=== PATIENT | female | born 1930 | race Caucasian/White ===

== ENCOUNTER 2017-07-12 23:40 | Inpatient (IN) ==
[2017-07-13] MEDS ORDERED: ONDANSETRON 4 MG/2 ML VIAL IV STA (00:11)
[2017-07-13] MEDS ORDERED: MORPHINE 2 MG/1 ML SYRINGE IV STA (00:11)
[2017-07-13] MEDS ORDERED: hydrALAZINE 20 MG/1 ML VIAL IV STA (00:21)
[2017-07-13] MEDS ORDERED: ONDANSETRON 4 MG/2 ML VIAL ONE (00:26)
[2017-07-13] MEDS ORDERED: hydrALAZINE 20 MG/1 ML VIAL ONE (00:26)
[2017-07-13] MEDS ORDERED: MORPHINE 2 MG/1 ML SYRINGE ONE (00:26)
[2017-07-13 00:29] LABS: Apearance,Urine CLEAR (Clear); Bacteria,Urine Occasional /HPF (Few); Bilirubin,Urine Negative (Negative); Blood, Urine Moderate mg/dL (Negative); Glucose,Urine (UA) 150 mg/dL (Negative); Ketones,Urine 5 mg/dL (Negative); Mucus,Urine Occasional /LPF (Occasional); Nitrite,Urine Negative (Negative); Protein,Urine 30 MG/DL; RBC,Urine 26 /HPF (0-4); Squamous Epithelial Cell,Urine Occasional /HPF (0-10); Urine Color Yellow (Yellow); Urine Urobilinogen < 2.0 EU/DL (0.2-1.0); WBC,Urine 2 /HPF (0-6)
[2017-07-13 00:33] LABS: Partial Thromboplastin Time 24.7 SECS (0-40)
[2017-07-13 00:48] LABS: Albumin 3.4 G/DL (3.4-5.0); Bilirubin,Total 0.5 MG/DL (0.2-1.0); Calcium 8.8 MG/DL (8.5-10.1); Osmolality,Calculated 280.8 MOS/KG (273-304); Potassium 3.2 MMOL/L (3.5-5.1); Total Protein 7.1 G/DL (6.4-8.3)
[2017-07-13 00:54] LABS: Basophils # 0.1 10*3/uL (0.0-0.2); Basophils % 0.5 % (0.0-0.8); Eosinophils # 0.1 10*3/uL (0.0-0.87); Eosinophils % 0.6 % (0.00-10.9); Hematocrit 39.8 VOL% (35.7-47.0); Hemoglobin 13.3 GM/DL (12.0-16.0); Immature Granulocytes % 0.9 %; Immature Granulocytes Absolute 0.11 #; Lymphocytes # 1.6 10*3/uL (1.4-4.0); Lymphocytes % 12.2 % (21.3-54.2); Mean Corpuscular HGB Conc 33.4 GM/DL (32-36); Mean Corpuscular Hemoglobin 30 PG (27-34); Mean Corpuscular Volume 90.9 FL (87-102); Mean Platelet Volume 11.2 FL (9.6-12.0); Monocytes # 0.7 10*3/uL (0.11-0.8); Monocytes % 5.1 % (1.7-12.7); Neutrophils # 10.4 10*3/uL (1.4-7.4); Neutrophils % 80.7 % (38.7-73.9); Platelet Count 194 T/CUMM (130-400); Red Blood Count 4.38 MC/CUMM (3.8-5.5); Red Cell Distribution Width 13.6 % (9.3-17.3); White Blood Count 12.8 T/CUMM (4-12)
[2017-07-13] MEDS ORDERED: ONDANSETRON 4 MG/2 ML VIAL IV PRN ×2 (01:46→12:17)
[2017-07-13] MEDS ORDERED: DEXTROSE 5% NACL 0.45% 1,000 ML IV SCH (02:00)
[2017-07-13] MEDS ORDERED: MORPHINE 2 MG/1 ML SYRINGE IV PRN ×3 (04:01→08:48)
[2017-07-13] MEDS ORDERED: ceFAZolin 1,000 MG in SYRINGE 1 EACH IV ONE (07:48)
[2017-07-13] MEDS: LISINOPRIL/HCTZ 20-12.5 MG TABLET PO SCH ×2 (08:19→22:04)
[2017-07-13] MEDS: METOPROLOL SUCCINATE XL 50 MG TABLET PO SCH (08:20)
[2017-07-13] MEDS: LACTATED RINGERS 1,000 ML IV SCH ×2 (08:55→10:00)
[2017-07-13] MEDS ORDERED: BACITRACIN OINT 0.9 GM PACK TOP ONE (09:28)
[2017-07-13] MEDS ORDERED: SEVOFLURANE 1 UNIT/15 MINUTE INH ONE (10:38)
[2017-07-13] MEDS ORDERED: fentaNYL 100 MCG/2 ML VIAL ONE (10:38)
[2017-07-13] MEDS ORDERED: LACTATED RINGERS 1,000 ML IV ONE (10:39)
[2017-07-13] MEDS ORDERED: ACETAMINOPHEN 1,000 MG/100 ML VIAL IV ONE (10:39)
[2017-07-13] MEDS ORDERED: GLYCOPYRROLATE 0.4 MG/2 ML VIAL ONE (10:39)
[2017-07-13] MEDS ORDERED: NEOSTIGMINE 10 MG/10 ML VIAL ONE (10:39)
[2017-07-13] MEDS ORDERED: ETOMIDATE 20 MG/10 ML VIAL IV ONE (10:39)
[2017-07-13] MEDS ORDERED: TRANEXAMIC ACID 1,000 MG/10 ML VIAL IV ONE (10:39)
[2017-07-13] MEDS: KETOROLAC 15 MG/1 ML VIAL IV SCH ×3 (12:40→22:03)
[2017-07-13] MEDS: POTASSIUM CHLORIDE INJ 40 MEQ in LACTATED RINGERS 1,000 ML IV SCH (12:49)
[2017-07-13] MEDS: DOCUSATE SODIUM 100 MG CAPSULE PO SCH ×2 (14:20→22:02)
[2017-07-13] MEDS: TOLTERODINE LA 4 MG CAPSULE PO SCH (14:20)
[2017-07-13] MEDS ORDERED: INSULIN REGULAR ** CONC 500 UNIT/ML ** 20 ML VIAL SUBCUT SCH (16:30)
[2017-07-13] MEDS: ACETAMINOPHEN 500 MG TABLET PO SCH ×2 (16:50→22:02)
[2017-07-13] MEDS: INSULIN REGULAR 100 UNIT/ML SUBCUT SCH ×2 (17:27→22:03)
[2017-07-13] MEDS: ceFAZolin 1,000 MG in SYRINGE 1 EACH IV SCH ×2 (17:30→22:01)
[2017-07-13] MEDS: diphenhydrAMINE CAP 25 MG CAPSULE PO SCH (22:02)
[2017-07-13] MEDS: INSULIN GLARGINE 100 UNIT/ML SUBCUT SCH (22:03)
[2017-07-14] MEDS: ACETAMINOPHEN 500 MG TABLET PO SCH ×2 (02:49→06:24)
[2017-07-14] MEDS: FONDAPARINUX 2.5 MG/0.5 ML SYRINGE SUBCUT SCH (02:50)
[2017-07-14] MEDS: KETOROLAC 15 MG/1 ML VIAL IV SCH (02:50)
[2017-07-14] MEDS: POTASSIUM CHLORIDE INJ 40 MEQ in LACTATED RINGERS 1,000 ML IV SCH (03:59)
[2017-07-14] MEDS: oxyCODONE IR 5 MG TABLET PO PRN ×2 (06:23→20:29)
[2017-07-14 06:31] LABS: Basophils # 0.1 10*3/uL (0.0-0.2); Basophils % 0.5 % (0.0-0.8); Eosinophils # 0.1 10*3/uL (0.0-0.87); Eosinophils % 0.9 % (0.00-10.9); Hematocrit 27.3 VOL% (35.7-47.0); Immature Granulocytes % 0.4 %; Immature Granulocytes Absolute 0.04 #; Lymphocytes # 2.1 10*3/uL (1.4-4.0); Lymphocytes % 21.4 % (21.3-54.2); Mean Corpuscular Hemoglobin 31 PG (27-34); Mean Corpuscular Volume 92.9 FL (87-102); Mean Platelet Volume 10.7 FL (9.6-12.0); Monocytes # 0.8 10*3/uL (0.11-0.8); Monocytes % 8.6 % (1.7-12.7); Neutrophils # 6.7 10*3/uL (1.4-7.4); Neutrophils % 68.2 % (38.7-73.9); Platelet Count 144 T/CUMM (130-400); Red Blood Count 2.94 MC/CUMM (3.8-5.5); Red Cell Distribution Width 14.1 % (9.3-17.3); White Blood Count 9.8 T/CUMM (4-12)
[2017-07-14] MEDS ORDERED: DEXTROSE 50% 25 GM/50 ML VIAL IV PRN (07:29)
[2017-07-14] MEDS ORDERED: GLUCAGON 1 MG VIAL IM PRN (07:29)
[2017-07-14] MEDS: INSULIN REGULAR 100 UNIT/ML SUBCUT SCH ×4 (07:34→20:32)
[2017-07-14 07:35] LABS: Calcium 8.2 MG/DL (8.5-10.1); Osmolality,Calculated 282.5 MOS/KG (273-304); Potassium 4.3 MMOL/L (3.5-5.1)
[2017-07-14] MEDS: LISINOPRIL/HCTZ 20-12.5 MG TABLET PO SCH ×2 (09:00→20:31)
[2017-07-14] MEDS: METOPROLOL SUCCINATE XL 50 MG TABLET PO SCH (09:00)
[2017-07-14] MEDS ORDERED: INSULIN GLARGINE 100 UNIT/ML SUBCUT SCH (09:00)
[2017-07-14] MEDS: INSULIN GLARGINE 100 UNIT/ML SUBCUT SCH ×2 (09:01→20:31)
[2017-07-14] MEDS: TOLTERODINE LA 4 MG CAPSULE PO SCH (09:01)
[2017-07-14] MEDS: DOCUSATE SODIUM 100 MG CAPSULE PO SCH ×2 (09:01→20:31)
[2017-07-14 13:19] LABS: Basophils # 0.1 10*3/uL (0.0-0.2); Basophils % 0.5 % (0.0-0.8); Eosinophils # 0.2 10*3/uL (0.0-0.87); Eosinophils % 1.6 % (0.00-10.9); Hematocrit 25.3 VOL% (35.7-47.0); Hemoglobin 8.5 GM/DL (12.0-16.0); Immature Granulocytes % 0.3 %; Immature Granulocytes Absolute 0.03 #; Lymphocytes # 1.8 10*3/uL (1.4-4.0); Lymphocytes % 18.6 % (21.3-54.2); Mean Corpuscular HGB Conc 33.6 GM/DL (32-36); Mean Corpuscular Hemoglobin 31 PG (27-34); Mean Corpuscular Volume 92.3 FL (87-102); Mean Platelet Volume 11.4 FL (9.6-12.0); Monocytes # 0.7 10*3/uL (0.11-0.8); Monocytes % 7.2 % (1.7-12.7); Neutrophils # 6.9 10*3/uL (1.4-7.4); Neutrophils % 71.8 % (38.7-73.9); Platelet Count 143 T/CUMM (130-400); Red Blood Count 2.74 MC/CUMM (3.8-5.5); Red Cell Distribution Width 14.3 % (9.3-17.3); White Blood Count 9.6 T/CUMM (4-12)
[2017-07-14] MEDS: diphenhydrAMINE CAP 25 MG CAPSULE PO SCH (20:31)
[2017-07-15] MEDS: FONDAPARINUX 2.5 MG/0.5 ML SYRINGE SUBCUT SCH (04:04)
[2017-07-15 04:40] LABS: Basophils # 0.1 10*3/uL (0.0-0.2); Basophils % 0.7 % (0.0-0.8); Eosinophils # 0.2 10*3/uL (0.0-0.87); Eosinophils % 1.4 % (0.00-10.9); Hematocrit 25.6 VOL% (35.7-47.0); Hemoglobin 8.5 GM/DL (12.0-16.0); Immature Granulocytes % 0.3 %; Immature Granulocytes Absolute 0.03 #; Lymphocytes # 1.8 10*3/uL (1.4-4.0); Lymphocytes % 17.6 % (21.3-54.2); Mean Corpuscular HGB Conc 33.2 GM/DL (32-36); Mean Corpuscular Hemoglobin 30 PG (27-34); Mean Corpuscular Volume 90.8 FL (87-102); Mean Platelet Volume 11.1 FL (9.6-12.0); Monocytes # 0.9 10*3/uL (0.11-0.8); Monocytes % 8.9 % (1.7-12.7); Neutrophils # 7.4 10*3/uL (1.4-7.4); Neutrophils % 71.1 % (38.7-73.9); Platelet Count 143 T/CUMM (130-400); Red Blood Count 2.82 MC/CUMM (3.8-5.5); Red Cell Distribution Width 13.8 % (9.3-17.3); White Blood Count 10.4 T/CUMM (4-12)
[2017-07-15] MEDS: INSULIN REGULAR 100 UNIT/ML SUBCUT SCH ×4 (09:06→20:34)
[2017-07-15] MEDS: METOPROLOL SUCCINATE XL 50 MG TABLET PO SCH (09:07)
[2017-07-15] MEDS: TOLTERODINE LA 4 MG CAPSULE PO SCH (09:07)
[2017-07-15] MEDS: DOCUSATE SODIUM 100 MG CAPSULE PO SCH ×2 (09:07→20:28)
[2017-07-15] MEDS: LISINOPRIL/HCTZ 20-12.5 MG TABLET PO SCH ×2 (09:07→20:28)
[2017-07-15] MEDS: INSULIN GLARGINE 100 UNIT/ML SUBCUT SCH ×2 (12:18→20:29)
[2017-07-15] MEDS: FERROUS SULFATE 325 MG TABLET PO SCH ×2 (16:45→20:28)
[2017-07-15] MEDS: diphenhydrAMINE CAP 25 MG CAPSULE PO SCH (20:28)
[2017-07-16 03:23] LABS: Basophils # 0.1 10*3/uL (0.0-0.2); Basophils % 0.7 % (0.0-0.8); Eosinophils # 0.1 10*3/uL (0.0-0.87); Eosinophils % 0.9 % (0.00-10.9); Hematocrit 26.2 VOL% (35.7-47.0); Hemoglobin 9.1 GM/DL (12.0-16.0); Immature Granulocytes % 0.3 %; Immature Granulocytes Absolute 0.04 #; Lymphocytes % 16.1 % (21.3-54.2); Mean Corpuscular HGB Conc 34.7 GM/DL (32-36); Mean Corpuscular Hemoglobin 31 PG (27-34); Mean Corpuscular Volume 89.7 FL (87-102); Mean Platelet Volume 11.3 FL (9.6-12.0); Monocytes # 1.1 10*3/uL (0.11-0.8); Monocytes % 8.6 % (1.7-12.7); Neutrophils # 8.9 10*3/uL (1.4-7.4); Neutrophils % 73.4 % (38.7-73.9); Platelet Count 173 T/CUMM (130-400); Red Blood Count 2.92 MC/CUMM (3.8-5.5); Red Cell Distribution Width 13.5 % (9.3-17.3); White Blood Count 12.2 T/CUMM (4-12)
[2017-07-16] MEDS: FONDAPARINUX 2.5 MG/0.5 ML SYRINGE SUBCUT SCH (03:57)
[2017-07-16] MEDS: MAGNESIUM HYDROXIDE SUSP 30 ML UDCUP PO PRN ×3 (05:22→20:28)
[2017-07-16] MEDS: INSULIN REGULAR 100 UNIT/ML SUBCUT SCH ×4 (07:53→20:57)
[2017-07-16] MEDS: DOCUSATE SODIUM 100 MG CAPSULE PO SCH ×2 (09:29→20:57)
[2017-07-16] MEDS: LISINOPRIL/HCTZ 20-12.5 MG TABLET PO SCH ×2 (09:30→20:57)
[2017-07-16] MEDS: FERROUS SULFATE 325 MG TABLET PO SCH ×2 (09:30→20:57)
[2017-07-16] MEDS: TOLTERODINE LA 4 MG CAPSULE PO SCH (09:30)
[2017-07-16] MEDS: METOPROLOL SUCCINATE XL 50 MG TABLET PO SCH (09:31)
[2017-07-16] MEDS: INSULIN GLARGINE 100 UNIT/ML SUBCUT SCH ×2 (09:34→20:56)
[2017-07-16] MEDS ORDERED: ZALEPLON 5 MG CAPSULE PO PRN (15:16)
[2017-07-16] MEDS: diphenhydrAMINE CAP 25 MG CAPSULE PO SCH (20:57)
[2017-07-17] MEDS: FONDAPARINUX 2.5 MG/0.5 ML SYRINGE SUBCUT SCH (03:17)
[2017-07-17] MEDS: INSULIN REGULAR 100 UNIT/ML SUBCUT SCH ×3 (09:19→21:18)
[2017-07-17] MEDS: INSULIN GLARGINE 100 UNIT/ML SUBCUT SCH (09:20)
[2017-07-17] MEDS: FERROUS SULFATE 325 MG TABLET PO SCH (10:59)
[2017-07-17] MEDS: LISINOPRIL/HCTZ 20-12.5 MG TABLET PO SCH (11:03)
[2017-07-17] MEDS: DOCUSATE SODIUM 100 MG CAPSULE PO SCH (11:04)
[2017-07-17] MEDS: TOLTERODINE LA 4 MG CAPSULE PO SCH (11:04)
[2017-07-17] MEDS: METOPROLOL SUCCINATE XL 50 MG TABLET PO SCH (11:05)
[2017-07-17] MEDS: MAGNESIUM HYDROXIDE SUSP 30 ML UDCUP PO PRN (12:48)
[2017-07-17 21:27] VITALS: BP 98/51
== END 2017-07-17 19:15 | disposition swing bed (61) | DRG 481 ==
LOC: N.ED 23:40 → N.EDINP 07-13 01:41 → N.3E 07-13 02:30
PROVIDERS: ADMIT Family Medicine; ATTEND Family Medicine